=== PATIENT | female | born 1980 | race Caucasian/White ===

== ENCOUNTER 2018-08-25 18:14 | Emergency (ER) | payer OTHER ==
[~2018-08-25] VITALS: Ht 165.1 cm; Wt 100.0 kg
[~2018-08-25 18:14] MED LIST: HYDR-3965 PO; IBUP-1506 PO; INSLAN SQ; INSU100V SQ; LISI10TA7 PO; METF-960 PO; SIMV-260 PO; ZOLP10TA7 PO
[2018-08-25 18:29] LABS: GLUCOSE,POINT OF CARE 287 MG/DL (70-110)
[2018-08-25] MEDS ORDERED: SODIUM CHLORIDE 0.9% 1,000 ML IV ONE (22:00)
[2018-08-25] MEDS ORDERED: IBUPROFEN 800 MG TABLET PO ONE (22:00)
[2018-08-25 23:06] LABS: GLUCOSE,POINT OF CARE 265 MG/DL (70-110)
[2018-08-25] MEDS ORDERED: CEPHALEXIN MONOHYDRATE 500 MG CAPSULE PO ONE (23:15)
[2018-08-25 23:45] VITALS: BP 129/75
== END 2018-08-25 23:45 | disposition home or self-care (01) ==
LOC: EMS 18:15
DX: S90.411A Abrasion, right great toe, initial encounter (principal); L03.115 Cellulitis of right lower limb; E11.9 Type 2 diabetes mellitus without complications; I10 Essential (primary) hypertension; Z79.4 Long term (current) use of insulin; Z79.84 Long term (current) use of oral hypoglycemic drugs; W25.XXXA Contact with sharp glass, initial encounter; Y93.89 Activity, other specified; Y92.89 Other specified places as the place of occurrence of the external cause; Y99.8 Other external cause status